=== PATIENT | female | born 1985 | race Caucasian/White ===

== ENCOUNTER 2020-05-15 09:17 | Emergency (ER) | payer BC, SELFPAY ==
[2020-05-15 09:30] VITALS: BP 131/92; PULSE 93; RESP 20; TEMP 36.7; O2SAT 100
--- NOTE | 2020-05-15 10:12 | ED.URI ---
HPI - URI/Sore Throat General Chief Complaint: Upper Respiratory Infection Stated Complaint: fever tired weak and sore throat Time Seen by Provider: 05/15/20 09:56 Source: patient and RN notes reviewed Mode of arrival: ambulatory Limitations: no limitations History of Present Illness HPI Narrative: Patient presents today with a 2-day history of dry cough, fatigue, subjective fever with chills, sore throat, rhinorrhea. Denies shortness of breath, headache, congestion, nausea, vomiting, diarrhea, loss of taste or smell. History of asthma. Smokes half pack per day. Currently rates her pain 09/01 and has been taking Advil with mild relief. MD elicited complaint: cough and sore throat Related Data Home Medications Medication Instructions Recorded Confirmed divalproex PO 05/15/20 escitalopram oxalate [Lexapro] 20 mg PO DAILY 05/15/20 05/15/20 hydroxyzine pamoate 05/15/20 spironolactone 05/15/20 trazodone 05/15/20 Allergies Allergy/AdvReac Type Severity Reaction Status Date / Time bupropion Allergy Unknown rash Verified 10/06/17 11:38 amoxicillin AdvReac Other Verified 05/15/20 10:12 Review of Systems Review of Systems: Narrative: CONSTITUTIONAL: Denies body aches, or sweats. + Subjective fever, chills, fatigue EYES: Denies visual changes, redness, or discharge. ENT: Denies congestion, or otalgia.+ Sore throat, rhinorrhea CARDIOVASCULAR: Denies chest pain, palpitations, or edema. RESPIRATORY: Denies dyspnea. + Dry cough GASTROINTESTINAL: Denies abdominal pain, nausea, vomiting, or diarrhea. GENITOURINARY: Denies dysuria or hematuria. SKIN: Denies rash, itching, or wounds. MUSCULOSKELETAL: Denies back pain, joint pain, or myalgia. NEUROLOGIC: Denies headache, numbness, tingling, or weakness. PSYCH: Denies depression or anxiety. [facility] Past Medical History Medical History (Updated 05/15/20 @ 10:18 by Kamala Bond, [employer], [employer]) Asthma Depression Surgical History Surgical History (Updated 05/15/20 @ 10:15 by Kamala Bond, [employer], [employer]) History of cholecystectomy Social History Social History (Updated 05/15/20 @ 10:15 by Kamala Bond, [facility], ) Smoking packs per day: 0.5 Smoking cigarettes per day: 10.0 Comments At time of signature, I have reviewed and agree with nursing past medical, surgical, social and family history unless otherwise noted. Please see nursing chart for further information. There is no relevant family history pertinent to the presenting complaint Exam Narrative: Exam Narrative: GENERAL: Mildly ill-appearing, well-nourished, and in no acute distress. HEAD: Normocephalic, atraumatic. EYES: EOMI. No redness or drainage. Conjunctivae normal. ENT: Mucous membranes pink and moist. Nares clear. No rhinorrhea. TMs normal bilaterally. Throat mildly erythematous without edema or exudate. Uvula midline. NECK: Normal AROM. Supple. No lymphadenopathy. CHEST: No respiratory distress. Clear to auscultation. HEART: Regular rate and rhythm. No murmur appreciated. Normal peripheral pulses. EXTREMITIES: Normal range of motion. No edema. SKIN: Warm, dry, no rash. Capillary refill normal. Normal skin turgor. NEURO: No focal deficits. Alert and oriented x3. Gait steady. PSYCH: Normal affect. No signs of depression or anxiety. Course Vital Signs Vital signs: Vital Signs Temperature 98.1 F 05/15/20 09:30 Pulse Rate 93 05/15/20 09:30 Respiratory Rate 20 05/15/20 09:30 Blood Pressure 131/92 H 05/15/20 09:30 Pulse Oximetry 100 05/15/20 09:30 Temperature 98.1 F 05/15/20 09:30 Pulse Rate 93 05/15/20 09:30 Respiratory Rate 20 05/15/20 09:30 Blood Pressure 131/92 H 05/15/20 09:30 Pulse Oximetry 100 05/15/20 09:30 Reviewed. Pt has been instructed to follow up with her PCP regarding her elevated blood pressure today. MDM - URI/Sore Throat Differential Diagnosis Differential diagnosis: Likely upper respiratory infection, otitis media, sinusitis,
--- NOTE | 2020-05-15 11:29 | PC.NURSE ---
noted [facility] covid form completed and submitted previously, did not print copy
== END 2020-05-15 10:20 | disposition home or self-care (01) ==
PROVIDERS: Emergency Provider Nurse Practitioner; PCP Family Medicine
DX: J02.9 Acute pharyngitis, unspecified (principal); Z20.822 Contact with and (suspected) exposure to COVID-19; J45.909 Unspecified asthma, uncomplicated; F32.9 Major depressive disorder, single episode, unspecified; F17.210 Nicotine dependence, cigarettes, uncomplicated
CPT/HCPCS: 87081; 87426; 87880; 99213; C9803; G0463

== ENCOUNTER 2020-06-24 17:25 | Emergency (ER) | payer MEDICAID, SELFPAY ==
[2020-06-24 17:30] VITALS: BP 119/71; PULSE 91; RESP 14; TEMP 36.6; O2SAT 100
--- NOTE | 2020-06-24 17:38 | ED.GENADULT ---
HPI - General Adult General Chief complaint: Upper Respiratory Infection Stated complaint: pain in ears head throat and tired Time Seen by Provider: 06/24/20 17:38 Source: patient Mode of arrival: ambulatory Limitations: no limitations History of Present Illness HPI narrative: 34-year-old female patient presents to the [facility] with complaints of cold symptoms that started 2 days ago. Patient states she spiked a fever last night as high as 101. Patient states she has not received a flu vaccine this year. Patient states that she did receive her first Covid vaccine on June 03 and is due to get her second 1 on July 03. 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 Patient states she has had a headache, ear pain, stuffy nose, runny nose, sore throat and a slight cough. Denies chest pain or shortness of breath at this time. Patient is an active smoker that also vapes. Related Data Home Medications Medication Instructions Recorded Confirmed divalproex 500 mg PO HS 05/15/20 06/24/20 divalproex [Depakote] 250 mg PO DAILY 05/15/20 06/24/20 escitalopram oxalate [Lexapro] 20 mg PO DAILY 05/15/20 06/24/20 hydroxyzine pamoate 25 mg PO Q8H PRN 05/15/20 06/24/20 spironolactone 100 mg PO DAILY 05/15/20 06/24/20 trazodone 100 mg PO HS 05/15/20 06/24/20 clindamycin phosphate 1 applic TOPICAL DAILY 06/24/20 06/24/20 doxycycline hyclate 50 mg PO TID 06/24/20 06/24/20 metformin 500 mg PO DAILY 06/24/20 06/24/20 phentermine 30 mg PO DAILY 06/24/20 06/24/20 quetiapine [Seroquel] 200 mg PO HS 06/24/20 06/24/20 trifarotene [Aklief] 1 applic TOPICAL DAILY 06/24/20 06/24/20 Allergies Allergy/AdvReac Type Severity Reaction Status Date / Time bupropion Allergy Unknown rash Verified 10/06/17 11:38 amoxicillin AdvReac Unknown Rash Verified 06/24/20 17:47 Review of Systems Review of Systems: Narrative: CONSTITUTIONAL: Positive fever, denies chills, or sweats. EYES: Denies visual changes, redness, or discharge. ENT: Positive rhinorrhea, congestion, sore throat, and bilateral otalgia. CARDIOVASCULAR: Denies chest pain, palpitations, or edema. RESPIRATORY: Positive cough, denies dyspnea. GASTROINTESTINAL: Denies abdominal pain, nausea, vomiting, or diarrhea. GENITOURINARY: Denies dysuria or hematuria. SKIN: Denies rash or itching. MUSCULOSKELETAL: Denies back pain, joint pain, or myalgia. NEUROLOGIC: Positive headache, denies numbness, or weakness. PSYCHIATRIC: Denies anxiety or depression. [facility] Past Medical History Medical History Asthma Depression Surgical History Surgical History History of cholecystectomy Social History Social History Smoking packs per day: 0.5 Smoking cigarettes per day: 10.0 Comments At the time of my signature I agree with nursing past medical history, surgical, social, and family history. There is no relevant family history pertinent to the presenting complaint. Exam Narrative: Exam Narrative: GENERAL: ill-appearing, well-nourished, and in no acute distress. HEAD: Normocephalic, atraumatic. EYES: PERRLA and EOMI. ENT: Nares with erythema and edema noted bilaterally with the right nare swollen shut, yellow rhinorrhea, no epistaxis. Mucous membranes moist. Posterior pharynx with 2+ tonsil enlargement, erythema with exudates present to the left side. The left ear canal does appear to have some erythema with erythema noted to the left TM. NECK: Supple. No lymphadenopathy CHEST: Slight decreased lung sounds noted to bilateral lower lobes. No respiratory distress. Patient is able talk in clear complete sentences. No tripoding noted. HEART: Regular rate and rhythm. No murmur heard. Normal peripheral pulses. ABDOMEN: Soft, nontender, nondistended, normal active bowel sounds. E
[2020-06-26 19:24] LABS: SARS-CoV-2 RNA PCR Negative
== END 2020-06-24 18:05 | disposition home or self-care (01) ==
PROVIDERS: Emergency Provider Nurse Practitioner Family; PCP Family Medicine
DX: J02.0 Streptococcal pharyngitis (principal); Z20.822 Contact with and (suspected) exposure to COVID-19; F17.210 Nicotine dependence, cigarettes, uncomplicated; J45.909 Unspecified asthma, uncomplicated; F32.9 Major depressive disorder, single episode, unspecified
CPT/HCPCS: 87804; 87880; 99213; C9803; G0463; U0003; U0005

== ENCOUNTER 2020-10-25 12:20 | Emergency (ER) | payer OTHER, BC, SELFPAY ==
[2020-10-25 12:34] VITALS: BP 156/63; PULSE 91; RESP 20; TEMP 36.8; O2SAT 100
--- NOTE | 2020-10-25 12:54 | ED.URI ---
HPI - URI/Sore Throat General Chief Complaint: Upper Respiratory Infection Stated Complaint: upper respiratory headache weak Time Seen by Provider: 10/25/20 12:50 Source: patient, RN notes reviewed and old records reviewed Mode of arrival: ambulatory Limitations: no limitations History of Present Illness HPI Narrative: 34-year-old female who presents to [facility] with 4 day history of sinus headache, body aches and cough. She states her daughter is home with Covid at present time. She reports that she did receive COVID vaccination. Patient states that she does not have any acute difficulty with her breathing but has noted some wheezing and bad cough, SAO2 100% on room air. Patient does have history of tobacco abuse of 1/2 pack of cigarettes daily for 20 years. She states that she has not taken anything OTC for her symptoms. MD elicited complaint: cough Related Data Home Medications Medication Instructions Recorded Confirmed divalproex 500 mg PO BID 05/15/20 10/25/20 escitalopram oxalate [Lexapro] 20 mg PO DAILY 05/15/20 10/25/20 hydroxyzine pamoate 25 mg PO Q8H PRN 05/15/20 10/25/20 spironolactone 100 mg PO DAILY 05/15/20 10/25/20 trazodone 100 mg PO HS 05/15/20 10/25/20 quetiapine [Seroquel] 200 mg PO HS 06/24/20 10/25/20 Allergies Allergy/AdvReac Type Severity Reaction Status Date / Time bupropion Allergy Unknown rash Verified 10/25/20 13:12 amoxicillin AdvReac Unknown Rash Verified 10/25/20 13:12 Review of Systems Review of Systems: CONSTITUTIONAL: Denies fever, chills, or sweats. EYES: Denies visual changes, redness, or discharge. ENT: Denies rhinorrhea, congestion, sore throat, or otalgia. CARDIOVASCULAR: Denies chest pain, palpitations, or edema. RESPIRATORY:positive cough denies dyspnea reports occasional wheeze noted GASTROINTESTINAL: Denies abdominal pain, nausea, vomiting, or diarrhea. GENITOURINARY: Denies dysuria or hematuria. SKIN: Denies rash or itching. MUSCULOSKELETAL: Denies back pain, joint pain, or myalgia. NEUROLOGIC:Positive frontal headache, numbness, or weakness. PSYCHIATRIC: positive history ofanxiety or depression. All systems reviewed & are unremarkable except as noted in HPI and below PMFSH Past Medical History Medical History (Updated 11/01/20 @ 15:48 by Teri Longoria NP) Asthma Bipolar 1 disorder Depression Hypertension Sleep apnea with use of continuous positive airway pressure (CPAP) Surgical History Surgical History (Updated 11/01/20 @ 15:42 by Teri Longoria NP) History of bilateral carpal tunnel release History of cholecystectomy History of hysterectomy Hx of spinal surgery Previous section Social History Social History (Updated 11/01/20 @ 15:49 by Teri Longoria NP) Smoking packs per day: 0.5 Smoking cigarettes per day: 10.0 Smoking status: Current every day smoker Tobacco type: cigarettes Alcohol intake: unknown Substance use type: does not use Living arrangements: with family Gender identity (if verbalized by the patient): Female Comments At time of signature, agree with nursing past medical, surgical, social and family history. There is no relevant family history pertinent to the presenting complaint Exam Narrative: GENERAL: ill-appearing, well-nourished,obese,and in no acute distress. HEAD: Normocephalic, atraumatic. EYES: PERRLA and EOMI. ENT: Nares clear, no rhinorrhea or epistaxis.sinus pressure with frontal headache. Mucous membranes moist.TM;s normal with good light reflex. throat pink with no lesions or exudates or tonsil enlargement post nasal drainage noted NECK: Supple. no lymphadenopathy CHEST: Coarse to auscultation. No respiratory distress.cough noted SAO2 100% on room air HEART: Regular rate and rhythm. No murmur heard. Normal peripheral pulses. ABDOMEN: Soft, nontender, nondistended, normal active bowel sounds. EXTREMITIES: Normal range of motion. No edema. SKIN: Warm, dry, no rash. NEURO: No focal deficits.
== END 2020-10-25 13:18 | disposition home or self-care (01) ==
PROVIDERS: Emergency Provider Registered Nurse; PCP Family Medicine
DX: U07.1 COVID-19 (principal); J45.909 Unspecified asthma, uncomplicated; F32.9 Major depressive disorder, single episode, unspecified
CPT/HCPCS: 87426; 99213; C9803; G0463

== ENCOUNTER 2020-11-22 17:37 | Emergency (ER) | payer BC, OTHER, SELFPAY ==
--- NOTE | 2020-11-22 17:40 | ED.SKABFB ---
HPI - Skin/Abscess/Foreign Bdy General Chief complaint: Skin/Abscess/Foreign Body Stated complaint: poss shingles Time Seen by Provider: 11/22/20 17:40 Source: patient and RN notes reviewed History of Present Illness HPI narrative: Patient is a 35-year-old female who presents the urgent care with complaints of a possible shingles rash to the left arm. Patient states that it showed up on Thursday and she has been using Benadryl without any relief. Patient states that is now extremely painful and causing some tingling to the left hand. No other acute complaints. No acute distress noted. Patient aware of the plan of care. Some parts of this dictation were generated by voice recognition software and may contain typographical and/or grammatical inaccuracies. Related Data Home Medications Medication Instructions Recorded Confirmed divalproex 500 mg PO BID 05/15/20 11/22/20 escitalopram oxalate [Lexapro] 20 mg PO DAILY 05/15/20 11/22/20 hydroxyzine pamoate 25 mg PO Q8H PRN 05/15/20 11/22/20 trazodone 100 mg PO HS 05/15/20 11/22/20 quetiapine [Seroquel] 200 mg PO HS 06/24/20 11/22/20 furosemide 20 mg PO DAILY 11/22/20 11/22/20 phentermine 37.5 mg PO DAILY 11/22/20 11/22/20 semaglutide (weight loss) [Wegovy] 0.5 mg SUBCUT WEEKLY 11/22/20 11/22/20 Allergies Allergy/AdvReac Type Severity Reaction Status Date / Time bupropion Allergy Unknown rash Verified 11/22/20 17:51 amoxicillin AdvReac Unknown Rash Verified 11/22/20 17:51 Review of Systems Review of Systems: CONSTITUTIONAL: Denies fever, chills, or sweats. EYES: Denies visual changes, redness, or discharge. ENT: Denies rhinorrhea, congestion, sore throat, or otalgia. CARDIOVASCULAR: Denies chest pain, palpitations, or edema. RESPIRATORY: Denies cough or dyspnea. GASTROINTESTINAL: Denies abdominal pain, nausea, vomiting, or diarrhea. GENITOURINARY: Denies dysuria or hematuria. SKIN: Reports of burning itchy painful rash to the left arm MUSCULOSKELETAL: Denies back pain, joint pain, or myalgia. NEUROLOGIC: Denies headache, numbness, or weakness. All other systems reviewed are negative, except as documented in HPI. COUNTS INCLUDE 234 BEDS AT THE [facility] Past Medical History Medical History (Updated 11/22/20 @ 17:57 by MAGUI Scherer) Asthma Bipolar 1 disorder Depression Hypertension Sleep apnea with use of continuous positive airway pressure (CPAP) Surgical History Surgical History (Updated 11/01/20 @ 15:42 by Teri Longoria NP) History of bilateral carpal tunnel release History of cholecystectomy History of hysterectomy Hx of spinal surgery Previous section Social History Social History (Updated 11/01/20 @ 15:49 by Teri Longoria NP) Smoking packs per day: 0.5 Smoking cigarettes per day: 10.0 Smoking status: Current every day smoker Tobacco type: cigarettes Alcohol intake: unknown Substance use type: does not use Gender identity (if verbalized by the patient): Female Comments At the time of my signature, I reviewed and agree with the nursing past medical, surgical, social, and family history. There is no relevant family history pertinent to the patient complaint. Exam Narrative: GENERAL: This is a well-nourished, well-developed patient, in no apparent distress. HEAD: normocephalic, atraumatic. EYES: PERRL. Sclera clear/white. Vision is grossly intact. EARS: External ears normal NOSE: External nose normal with no obvious nasal discharge, nares without redness, no rhinorrhea. THROAT: Mucous membranes moist NECK: Neck supple CARDIOVASCULAR: Regular rate and rhythm without murmurs, gallops, or rubs. RESPIRATORY: Clear to auscultation. Breath sounds equal bilaterally. No wheezes, rales, or rhonchi. SKIN: Clustered vesicular/erythemic dermatitis noted to the left arm?likely shingles NEURO: awake, alert, and oriented to person, place and time. There were no obvious focal neurologic abnormalities. EXTREMITIES: No clubbing, cyanosis, or edema. Course
[2020-11-22 17:44] VITALS: BP 152/88; PULSE 88; RESP 14; TEMP 36.6; O2SAT 100
[2020-11-22 17:54] VITALS: BP 152/88; PULSE 88; RESP 14; TEMP 36.6; O2SAT 100
== END 2020-11-22 18:04 | disposition home or self-care (01) ==
PROVIDERS: Emergency Provider Nurse Practitioner Family; PCP Family Medicine
DX: B02.9 Zoster without complications (principal); F17.210 Nicotine dependence, cigarettes, uncomplicated; J45.909 Unspecified asthma, uncomplicated; I10 Essential (primary) hypertension; G47.30 Sleep apnea, unspecified; F31.9 Bipolar disorder, unspecified
CPT/HCPCS: 99213; G0463

== ENCOUNTER 2021-07-08 10:30 | Emergency (ER) | payer BC, OTHER, SELFPAY ==
--- NOTE | 2021-07-08 10:35 | ED.URI ---
HPI - URI/Sore Throat General Chief Complaint: Upper Respiratory Infection Stated Complaint: cough fever achey Time Seen by Provider: 07/08/21 11:10 Source: patient and RN notes reviewed Mode of arrival: ambulatory Limitations: no limitations History of Present Illness HPI Narrative: 45-year-old female presents with concern for more than 1 week history of cough, postnasal drainage, sinus congestion, chest heaviness, headache. Reports some exertional shortness of breath. Reports she started feeling worse last night with fever, body aches. Reports she was exposed to COVID 1 week ago. She reports she has been using DayQuil intermittently with little relief. MD elicited complaint: cough and nasal congestion Related Data Home Medications Medication Instructions Recorded Confirmed divalproex 500 mg PO BID 05/15/20 07/08/21 escitalopram oxalate [Lexapro] 20 mg PO DAILY 05/15/20 07/08/21 hydroxyzine pamoate 25 mg PO Q8H PRN 05/15/20 07/08/21 trazodone 100 mg PO HS 05/15/20 07/08/21 quetiapine [Seroquel] 200 mg PO HS 06/24/20 07/08/21 Allergies Allergy/AdvReac Type Severity Reaction Status Date / Time bupropion Allergy Unknown rash Verified 07/08/21 10:57 amoxicillin AdvReac Unknown Rash Verified 07/08/21 10:57 Review of Systems Review of Systems: CONSTITUTIONAL: Report malaise, fever. EYES: Denies visual changes, redness, or discharge. ENT: Reports rhinorrhea, congestion, sinus pain. Otalgia and sore throat. CARDIOVASCULAR: Denies chest pain, palpitations, or edema. RESPIRATORY: Reports cough, exertional dyspnea. GASTROINTESTINAL: Denies abdominal pain, nausea, vomiting, diarrhea SKIN: Denies rash or itching. MUSCULOSKELETAL: Reports myalgia. NEUROLOGIC: Reports headache. All systems reviewed & are unremarkable except as noted in HPI and below PMFSH Past Medical History Medical History (Updated 07/08/21 @ 11:16 by Christal Morocho NP) Asthma Bipolar 1 disorder Depression Hypertension Sleep apnea with use of continuous positive airway pressure (CPAP) Surgical History Surgical History (Updated 11/01/20 @ 15:42 by Teri Longoria NP) History of bilateral carpal tunnel release History of cholecystectomy History of hysterectomy Hx of spinal surgery Previous section Social History Social History (Updated 11/01/20 @ 15:49 by Teri Longoria NP) Smoking packs per day: 0.5 Smoking cigarettes per day: 10.0 Smoking status: Current every day smoker Tobacco type: cigarettes Alcohol intake: unknown Substance use type: does not use Gender identity (if verbalized by the patient): Female Comments At time of signature, agree with nursing past medical, surgical, social and family history. There is no relevant family history pertinent to the presenting complaint Exam Narrative: GENERAL: Nontoxic-appearing and in no acute distress. HEAD: Normocephalic EYES: PERRLA, conjunctivae clear ENT: Nares clear, turbinates edematous and erythematous. Mucous membranes moist. TM pearly holcomb with dull light reflex bilaterally; no tragal tenderness. Oropharynx not erythematous without lesions. Tonsils not enlarged and without exudate, no drooling, no hoarseness, no trismus, uvula midline. NECK: Supple. No lymphadenopathy CHEST: Clear to auscultation, breath sounds equal. No wheezing, rhonchi, rales, or stridor. No respiratory distress, speaks in full sentences. HEART: Regular rate and rhythm. No murmur heard. SKIN: Warm, dry, no rash. NEURO: Alert and oriented x3. PSYCH: Normal mood and affect Course Course Emergency Course: Patient is aware of diagnosis, understands and agrees to treatment plan. Anticipatory guidance given. Patient agrees to follow-up as directed and is aware of reasons to seek care at the emergency department. Portions of this record may have been created with voice recognition software Level of Care: Express Care Visit Vital Signs Vital signs: Reviewed. MDM - URI/Sore Throat MDM Na
[2021-07-08 10:36] VITALS: BP 127/77; PULSE 90; RESP 16; TEMP 37.5; O2SAT 100
[2021-07-08 10:50] VITALS: BP 130/83; PULSE 84; RESP 18; TEMP 36.3; O2SAT 100
== END 2021-07-08 11:30 | disposition home or self-care (01) ==
PROVIDERS: Emergency Provider Nurse Practitioner; PCP Family Medicine
DX: J32.9 Chronic sinusitis, unspecified (principal); J40 Bronchitis, not specified as acute or chronic; Z20.822 Contact with and (suspected) exposure to COVID-19; F17.210 Nicotine dependence, cigarettes, uncomplicated; I10 Essential (primary) hypertension; G47.30 Sleep apnea, unspecified; J45.909 Unspecified asthma, uncomplicated; F31.9 Bipolar disorder, unspecified
CPT/HCPCS: 87426; 87804; 99213; C9803; G0463

== ENCOUNTER 2021-11-08 08:01 | Emergency (ER) | payer OTHER, SELFPAY ==
--- NOTE | 2021-11-08 08:02 | ED.URI ---
HPI - URI/Sore Throat General Chief Complaint: Upper Respiratory Infection Stated Complaint: sore throat ear pain Time Seen by Provider: 11/08/21 08:02 Source: patient Mode of arrival: ambulatory Limitations: no limitations History of Present Illness HPI Narrative: Ms. Anderson is a 36-year-old female patient presenting to the clinic today with complaints of sore throat, headache, chills, nausea, and left ear pain x1 day. She reports she has had positive exposure to a friend who was positive for strep. She also reports that the coworker son has COVID. She has been fully vaccinated against COVID and had COVID approximately 2 years ago. She denies any known fever but does not have a thermometer at home to check her temperature. Denies any nasal congestion or cough. Related Data Home Medications Medication Instructions Recorded Confirmed divalproex 500 mg tablet,delayed 500 mg PO BID 05/15/20 11/08/21 release escitalopram oxalate 20 mg tablet 20 mg PO DAILY 05/15/20 11/08/21 (Lexapro) hydroxyzine pamoate 25 mg capsule 25 mg PO Q8H PRN Anxiety 05/15/20 11/08/21 trazodone 50 mg tablet 100 mg PO HS 05/15/20 11/08/21 quetiapine 200 mg tablet (Seroquel) 200 mg PO HS 06/24/20 11/08/21 Allergies Allergy/AdvReac Type Severity Reaction Status Date / Time bupropion Allergy Unknown rash Verified 11/08/21 08:42 amoxicillin AdvReac Unknown Rash Verified 11/08/21 08:42 Review of Systems Review of Systems: Pertinent positives per HPI. Patient denies any fever, rash, headache, visual changes, dizziness, cough, runny nose, shortness of breath, chest pain, palpitations, nausea, vomiting, diarrhea, constipation, abdominal pain, or any urinary issues. [facility] Past Medical History Medical History Asthma Bipolar 1 disorder Depression Hypertension Sleep apnea with use of continuous positive airway pressure (CPAP) Surgical History Surgical History History of bilateral carpal tunnel release History of cholecystectomy History of hysterectomy Hx of spinal surgery Previous section Social History Social History Smoking packs per day: 0.5 Smoking cigarettes per day: 10.0 Smoking status: Current every day smoker Tobacco type: cigarettes Alcohol intake: unknown Substance use type: does not use Gender identity (if verbalized by the patient): Female Comments At the time of my signature, I reviewed and agree with the nursing past medical, surgical, social, and family history. There is no relevant family history pertinent to the patient complaint. Exam Narrative: General: Well-developed, morbidly obese, in no apparent distress Head: Normocephalic, atraumatic Eyes: Pupils equally round and reactive to light bilaterally, EOM intact, sclera and conjunctive clear, no discharge, lids normal Ears: TMs intact and dull with mild bulging to the left TM, ear canals clear, no drainage, grossly hearing normal. Nose: Nares patent, clear discharge, no inflammation, no sinus tenderness. Mouth: Oropharynx without lesions or masses, good dentition, MMM. Tonsils mildly enlarged without obvious exudate oropharynx mildly red Neck: Supple, trachea midline, no enlargement of anterior or posterior cervical nodes, tenderness to palpation over the left eustachian tube, no thyroid masses or goiter palpable. Cardio: Regular rate and rhythm, s1 and s2 normal, no murmur appreciated. Resp: Clear to auscultation bilaterally anteriorly and posteriorly, no rhonchi, rales, wheezing or rubs Course Course Emergency Course: Portions of this record may have been created with voice recognition software. Level of Care: Express Care Visit Vital Signs Vital signs: Vital signs reviewed MDM - URI/Sore Throat MDM Narrative Medical decision making narrati
[2021-11-08 08:09] VITALS: BP 142/100; PULSE 92; RESP 16; TEMP 36.6; O2SAT 100
== END 2021-11-08 08:45 | disposition home or self-care (01) ==
PROVIDERS: Emergency Provider Nurse Practitioner Family; PCP Family Medicine
DX: J02.0 Streptococcal pharyngitis (principal); F31.9 Bipolar disorder, unspecified; I10 Essential (primary) hypertension; J45.909 Unspecified asthma, uncomplicated; F17.210 Nicotine dependence, cigarettes, uncomplicated
CPT/HCPCS: 87880; 99213; G0463

== ENCOUNTER 2022-04-30 17:14 | Emergency (ER) | payer BC, SELFPAY ==
[2022-04-30 17:19] VITALS: BP 157/103; PULSE 83; RESP 18; TEMP 36.6; O2SAT 100
--- NOTE | 2022-04-30 17:25 | ED.URI ---
HPI - URI/Sore Throat General Chief Complaint: Upper Respiratory Infection Stated Complaint: Sore Throat Time Seen by Provider: 04/30/22 17:25 Source: patient and RN notes reviewed History of Present Illness HPI Narrative: Patient is a 36-year-old female who presents to urgent care with complaints of a sore throat, nausea, vomiting and fever that all started this afternoon. Patient states the fever did resolve with Tylenol. States that her daughters at home were both diagnosed with strep within the last couple days. No other acute complaints. No acute distress noted. Patient aware of the plan of care. Some parts of this dictation were generated by voice recognition software and may contain typographical and/or grammatical inaccuracies. Related Data Home Medications Medication Instructions Recorded Confirmed divalproex 500 mg tablet,delayed 750 mg PO BID 05/15/20 04/30/22 release escitalopram oxalate 20 mg tablet 20 mg PO DAILY 05/15/20 04/30/22 (Lexapro) quetiapine 200 mg tablet (Seroquel) 200 mg PO HS 06/24/20 04/30/22 divalproex 250 mg tablet,extended 250 mg PO QPM 04/30/22 04/30/22 release 24 hr trazodone 100 mg tablet 100 mg PO DAILY 04/30/22 04/30/22 Allergies Allergy/AdvReac Type Severity Reaction Status Date / Time bupropion Allergy Unknown rash Verified 04/30/22 17:48 amoxicillin AdvReac Unknown Rash Verified 04/30/22 17:48 Review of Systems Review of Systems: CONSTITUTIONAL: Reports of fever EYES: Denies visual changes, redness, or discharge. ENT: Denies rhinorrhea, congestion, otalgia. Reports of sore throat CARDIOVASCULAR: Denies chest pain, palpitations, or edema. RESPIRATORY: Denies cough or dyspnea. GASTROINTESTINAL: Reports of 1 episode of nausea and vomiting GENITOURINARY: Denies dysuria or hematuria. SKIN: Denies rash or itching. MUSCULOSKELETAL: Denies back pain, joint pain, or myalgia. NEUROLOGIC: Denies headache, numbness, or weakness. All other systems reviewed are negative, except as documented in HPI. [facility] Past Medical History Medical History Asthma Bipolar 1 disorder Depression Hypertension Sleep apnea with use of continuous positive airway pressure (CPAP) Surgical History Surgical History History of bilateral carpal tunnel release History of cholecystectomy History of hysterectomy Hx of spinal surgery Previous section Social History Social History Smoking packs per day: 0.5 Smoking cigarettes per day: 10.0 Smoking status: Current every day smoker Tobacco type: cigarettes Alcohol intake: unknown Substance use type: does not use Living arrangements: with family Gender identity (if verbalized by the patient): Female Comments At the time of my signature, I reviewed and agree with the nursing past medical, surgical, social, and family history. There is no relevant family history pertinent to the patient complaint. Exam Narrative: GENERAL: This is a well-nourished, well-developed patient, in no apparent distress. HEAD: normocephalic, atraumatic. EYES: PERRL. Sclera clear/white. Vision is grossly intact. EARS: External ears normal, auditory canals clear and without drainage, TMs normal without perforation. Hearing grossly intact. NOSE: External nose normal with no obvious nasal discharge, nares without redness, no rhinorrhea. THROAT: Mucous membranes moist, mild erythema to posterior pharynx with mild bilateral tonsillar edema without exudate. Moderate postnasal drainage NECK: Neck supple, non-tender bilateral submandibular lymphadenopathy CARDIOVASCULAR: Regular rate and rhythm without murmurs, gallops, or rubs. RESPIRATORY: Clear to auscultation. Breath sounds equal bilaterally. No wheezes, rales, or rhonchi. SKIN: warm, intact with no suspicious lesions or rash
== END 2022-04-30 18:05 | disposition home or self-care (01) ==
PROVIDERS: Emergency Provider Nurse Practitioner Family; PCP Family Medicine
DX: J02.9 Acute pharyngitis, unspecified (principal); I10 Essential (primary) hypertension; J45.909 Unspecified asthma, uncomplicated; F32.A Depression, unspecified; F17.210 Nicotine dependence, cigarettes, uncomplicated
CPT/HCPCS: 87081; 87880; 99213; G0463

== ENCOUNTER 2022-05-06 17:51 | Emergency (ER) | payer BC, SELFPAY ==
[2022-05-06 17:55] VITALS: BP 159/98; PULSE 92; RESP 16; TEMP 36.5; O2SAT 99
--- NOTE | 2022-05-06 18:34 | ED.GENADULT ---
HPI - General Adult General Chief complaint: Urogenital-Female Stated complaint: Vaginal Issue Source: patient Mode of arrival: ambulatory Limitations: no limitations History of Present Illness HPI narrative: PATIENT PRESENTS FOR EVALUATION OF VAGINAL IRRITATION. SHE INDICATES SHE WAS EVALUATED HERE RECENTLY FOR SORE THROAT. SHE STATES SHE WAS GIVEN AZITHROMYCIN FOR SUSPECTED STREP. SHE TOOK THE MEDICATION FOR 2 DAYS AND THEN NOTED SOME VAGINAL IRRITATION THEREAFTER. SHE STOP TAKING THE ANTIBIOTICS. SORE THROAT RESOLVED. SHE REPORTS URINARY FREQUENCY AND URGENCY. SHE HAS INTERMITTENT DYSURIA. SHE DENIES ANY FEVER, CHILLS, NAUSEA, VOMITING, ABDOMINAL OR LOW BACK PAIN. SHE DOES REPORT VAGINAL ITCHING. SHE HAS A HISTORY OF HYSTERECTOMY. SHE IS SEXUALLY ACTIVE WITH 1 MALE PARTNER WHO IS ASYMPTOMATIC. SHE STATES SHE IS NOT CONCERNED ABOUT STI. Related Data Home Medications Medication Instructions Recorded Confirmed divalproex 500 mg tablet,delayed 750 mg PO BID 05/15/20 05/06/22 release escitalopram oxalate 20 mg tablet 20 mg PO DAILY 05/15/20 05/06/22 (Lexapro) quetiapine 200 mg tablet (Seroquel) 200 mg PO HS 06/24/20 05/06/22 divalproex 250 mg tablet,extended 250 mg PO QPM 04/30/22 05/06/22 release 24 hr trazodone 100 mg tablet 100 mg PO DAILY 04/30/22 05/06/22 Allergies Allergy/AdvReac Type Severity Reaction Status Date / Time bupropion Allergy Unknown rash Verified 05/06/22 17:59 amoxicillin AdvReac Unknown Rash Verified 05/06/22 17:59 Review of Systems Review of Systems: CONSTITUTIONAL: DENIES FEVER, CHILLS, OR SWEATS. EYES: DENIES VISUAL CHANGES, REDNESS, OR DISCHARGE. ENT: DENIES RHINORRHEA, CONGESTION, SORE THROAT, OR OTALGIA. CARDIOVASCULAR: DENIES CHEST PAIN, PALPITATIONS, OR EDEMA. RESPIRATORY: DENIES COUGH OR DYSPNEA. GASTROINTESTINAL: DENIES ABDOMINAL PAIN, NAUSEA, VOMITING, OR DIARRHEA. GENITOURINARY: REPORTS URINARY URGENCY, FREQUENCY, INTERMITTENT DYSURIA, VAGINAL DISCHARGE, VAGINAL ITCHING. DENIES HEMATURIA AND VAGINAL BLEEDING SKIN: DENIES RASH OR ITCHING. MUSCULOSKELETAL: DENIES BACK PAIN, JOINT PAIN, OR MYALGIA. NEUROLOGIC: DENIES HEADACHE, NUMBNESS, DIZZINESS, OR WEAKNESS. PSYCHIATRIC: DENIES ANXIETY OR DEPRESSION. [facility], LAT[facility] Past Medical History Medical History Asthma Bipolar 1 disorder Depression Hypertension Sleep apnea with use of continuous positive airway pressure (CPAP) Surgical History Surgical History History of bilateral carpal tunnel release History of cholecystectomy History of hysterectomy Hx of spinal surgery Previous section Social History Social History Smoking packs per day: 0.5 Smoking cigarettes per day: 10.0 Smoking status: Current every day smoker Tobacco type: cigarettes Alcohol intake: unknown Substance use type: does not use Living arrangements: with family Gender identity (if verbalized by the patient): Female Exam Narrative: GENERAL: Well-appearing, well-nourished, and in no acute distress. HEAD: Normocephalic, atraumatic. EYES: PERRLA and EOMI. ENT: Nares clear, no rhinorrhea or epistaxis. Mucous membranes moist. Oropharynx without tonsillar hypertrophy exudate or other lesions. Bilateral TMs pearly holcomb nonbulging NECK: Supple. No adenopathy or masses. No carotid bruits or JVD CHEST: Clear to auscultation. No respiratory distress. No wheezes rales or rhonchi HEART: Regular rate and rhythm. No murmur heard. Normal peripheral pulses. ABDOMEN: Soft, nontender, nondistended, normal active bowel sounds. EXTREMITIES: Normal range of motion. No edema. SKIN: Warm, dry, no rash. NEURO: No focal deficits. Alert and oriented x3. PSYCH: Normal mood and affect. Course Course Emergency Course: This is a 36-year-old female who presented for eval
== END 2022-05-06 18:55 | disposition home or self-care (01) ==
PROVIDERS: Emergency Provider Nurse Practitioner; PCP Emergency Medicine
DX: N39.0 Urinary tract infection, site not specified (principal); B37.31 Acute candidiasis of vulva and vagina; F17.210 Nicotine dependence, cigarettes, uncomplicated; J45.909 Unspecified asthma, uncomplicated; I10 Essential (primary) hypertension; G47.30 Sleep apnea, unspecified; F31.9 Bipolar disorder, unspecified
CPT/HCPCS: 81003; 87086; 87088; 99213; G0463

== ENCOUNTER 2022-11-04 17:41 | Emergency (ER) | payer OTHER, SELFPAY ==
--- NOTE | 2022-11-04 17:48 | ED.URI ---
HPI - URI/Sore Throat General Chief Complaint: Upper Respiratory Infection Stated Complaint: Headache/Sinus Congestion Time Seen by Provider: 11/04/22 18:09 Source: patient and RN notes reviewed Mode of arrival: ambulatory Limitations: no limitations History of Present Illness HPI Narrative: 37-year-old female presents concern for 3 day history of cough, sore throat, fever, aches, chills, sweats, headache. She reports exposure to COVID last week by a person her office. She reports she has been taking DayQuil and NyQuil. MD elicited complaint: cough Related Data Home Medications Medication Instructions Recorded Confirmed divalproex 500 mg tablet,delayed 750 mg PO BID 05/15/20 05/06/22 release escitalopram oxalate 20 mg tablet 20 mg PO DAILY 05/15/20 05/06/22 (Lexapro) quetiapine 200 mg tablet (Seroquel) 200 mg PO HS 06/24/20 05/06/22 divalproex 250 mg tablet,extended 250 mg PO QPM 04/30/22 05/06/22 release 24 hr trazodone 100 mg tablet 100 mg PO DAILY 04/30/22 05/06/22 lisinopril 20 mg tablet mg 11/04/22 topiramate 50 mg tablet mg 11/04/22 Allergies Allergy/AdvReac Type Severity Reaction Status Date / Time bupropion Allergy Unknown rash Verified 05/06/22 17:59 amoxicillin AdvReac Unknown Rash Verified 05/06/22 17:59 Review of Systems Review of Systems: CONSTITUTIONAL: Reports malaise, fever. EYES: Denies visual changes, redness, or discharge. ENT: Reports rhinorrhea, congestion, and sore throat. CARDIOVASCULAR: Denies chest pain, palpitations, or edema. RESPIRATORY: Reports cough. Denies dyspnea. GASTROINTESTINAL: Denies abdominal pain, nausea, vomiting, diarrhea SKIN: Denies rash or itching. MUSCULOSKELETAL: Denies myalgia. NEUROLOGIC: Reports headache. All systems reviewed & are unremarkable except as noted in HPI and below PMFSH Past Medical History Medical History Asthma Bipolar 1 disorder Depression Hypertension Sleep apnea with use of continuous positive airway pressure (CPAP) Surgical History Surgical History History of bilateral carpal tunnel release History of cholecystectomy History of hysterectomy Hx of spinal surgery Previous section Social History Social History Smoking packs per day: 0.5 Smoking cigarettes per day: 10.0 Smoking status: Current every day smoker Tobacco type: cigarettes Alcohol intake: unknown Substance use type: does not use Living arrangements: with family Gender identity (if verbalized by the patient): Female Comments At time of signature, agree with nursing past medical, surgical, social and family history. There is no relevant family history pertinent to the presenting complaint Exam Narrative: GENERAL: Well-appearing, well-nourished, and in no acute distress. HEAD: Normocephalic EYES: PERRLA, conjunctivae clear ENT: Nares clear, turbinates edematous and erythematous, clear discharge. Mucous membranes moist. TM pearly holcomb with dull light reflex bilaterally; no tragal tenderness. Oropharynx not erythematous without lesions. Tonsils not enlarged and without exudate, no drooling, no hoarseness, no trismus, uvula midline. NECK: Supple. No lymphadenopathy CHEST: Clear to auscultation, breath sounds equal. No wheezing, rhonchi, rales, or stridor. No respiratory distress, speaks in full sentences. HEART: Regular rate and rhythm. No murmur heard. SKIN: Warm, dry, no rash. NEURO: Alert and oriented x3. PSYCH: Normal mood and affect Course Course Emergency Course: Patient is aware of diagnosis, understands and agrees to treatment plan. Anticipatory guidance given. Patient agrees to follow-up as directed and is aware of reasons to seek care at the emergency department. Portions of this record may have been created with voice recognition software
[2022-11-04 17:54] VITALS: BP 176/115; PULSE 91; RESP 18; TEMP 36.3; O2SAT 100
== END 2022-11-04 18:25 | disposition home or self-care (01) ==
PROVIDERS: Emergency Provider Nurse Practitioner
DX: J06.9 Acute upper respiratory infection, unspecified (principal); I10 Essential (primary) hypertension; F17.210 Nicotine dependence, cigarettes, uncomplicated; Z20.822 Contact with and (suspected) exposure to COVID-19
CPT/HCPCS: 87426; 99213; C9803; G0463

== ENCOUNTER 2023-11-24 12:30 | Emergency (ER) | payer OTHER, SELFPAY ==
[2023-11-24 12:40] VITALS: BP 142/86; PULSE 84; RESP 20; TEMP 36.6; O2SAT 98
--- NOTE | 2023-11-24 12:42 | ED.URI ---
HPI - URI/Sore Throat General Chief Complaint: Upper Respiratory Infection Stated Complaint: Head/ears/throat/cough Time Seen by Provider: 11/24/23 12:42 Source: patient, RN notes reviewed and old records reviewed Mode of arrival: ambulatory Limitations: no limitations History of Present Illness HPI Narrative: 38-year-old female to [facility] with complaint of 3 days headache, head congestion, nasal drainage, sore fever, fatigue, Bilateral ear pain. Patient reports that started this morning. Patient has attempted to treat him with ibuprofen and Tylenol with little relief. Patient denies difficulty swallowing, shortness of breath, chest pain, GI complaints, pertinent medical history. Patient able to tolerate fluids by mouth. Respirations even and nonlabored. Patient resting comfortably in exam room, appears acutely ill and tired. Patient in no acute distress. Related Data Home Medications Medication Instructions Recorded Confirmed divalproex 500 mg tablet,delayed 750 mg PO BID 05/15/20 11/24/23 release escitalopram oxalate 20 mg tablet 20 mg PO DAILY 05/15/20 11/24/23 (Lexapro) quetiapine 200 mg tablet (Seroquel) 200 mg PO HS 06/24/20 11/24/23 divalproex 250 mg tablet,extended 250 mg PO QPM 04/30/22 11/24/23 release 24 hr trazodone 100 mg tablet 100 mg PO DAILY 04/30/22 11/24/23 lisinopril 20 mg tablet 20 mg PO DAILY 11/04/22 11/24/23 amlodipine 10 mg tablet 10 mg PO DAILY 11/24/23 11/24/23 Allergies Allergy/AdvReac Type Severity Reaction Status Date / Time bupropion Allergy Unknown rash Verified 11/24/23 12:46 amoxicillin AdvReac Unknown Rash Verified 11/24/23 12:46 Review of Systems Review of Systems: All systems reviewed & are unremarkable except as noted in HPI and below Constitutional: Constitutional: Reports as per HPI, Reports fatigue and Reports headache(s) Eyes: Eyes: Reports no additional eye complaints ENT: Reports as per HPI, Reports nasal congestion, Reports nasal discharge, Reports post nasal drip and Reports sore throat Cardiovascular: Cardiovascular: Reports no additional cardiovascular complaints, Denies chest pain and Denies dyspnea Respiratory: Respiratory: Reports as per HPI, Reports cough and Denies dyspnea Musculoskeletal: Musculoskeletal: Reports no additional musculoskeletal complaints Neurologic: Reports system reviewed and no additional complaints, except as documented Psychiatric: Psychiatric: Reports no additional psychiatric complaints PMFSH Past Medical History Medical History Asthma Bipolar 1 disorder Depression Hypertension Sleep apnea with use of continuous positive airway pressure (CPAP) Surgical History Surgical History History of bilateral carpal tunnel release History of cholecystectomy History of hysterectomy Hx of spinal surgery Previous section Social History Social History Smoking packs per day: 0.5 Smoking cigarettes per day: 10.0 Smoking status: Current every day smoker Tobacco type: cigarettes Alcohol intake: unknown Substance use type: does not use Living arrangements: with family Gender identity (if verbalized by the patient): Female Comments At the time of my signature, I reviewed and agree with the nursing past medical, surgical, social, and family history. There is no relevant family history pertinent to the patient complaint. Exam Const: General: cooperative, no acute distress, alert, ill appearing acutely, tired appearing, uncomfortable and well nourished Nutritional Appearance: well nourished Orientation/consciousness: patient oriented x3 Limitations: no limitations HENMT: Head: normal to inspection Ears: Abnormal EAC present erythema bilateral and EAC tenderness bilateral and TM abnormal erythematous bilateral, with fluid b
[2023-11-24 13:09] LABS: EDINFLUASCREEN Negative (Negative); EDINFLUBSCREEN Negative (Negative); EDSTREPNEGPOS1 Negative (Negative)
[2023-11-24 13:15] LABS: EDCOVIDSCREEN Negative (Negative)
== END 2023-11-24 13:25 | disposition home or self-care (01) ==
PROVIDERS: Emergency Provider Nurse Practitioner Family
DX: H66.93 Otitis media, unspecified, bilateral (principal); Z20.822 Contact with and (suspected) exposure to COVID-19; F17.210 Nicotine dependence, cigarettes, uncomplicated; J45.909 Unspecified asthma, uncomplicated; I10 Essential (primary) hypertension; G47.30 Sleep apnea, unspecified; F31.9 Bipolar disorder, unspecified
CPT/HCPCS: 87081; 87426; 87804; 87880; 99213; G0463